=== PATIENT | female | born 1970 | race Caucasian/White ===

== ENCOUNTER → 2017-02-26 | Day surgery (SDC) | payer OTHER ==
[~2017-02-26] MED LIST: ALLERGY10 MG PO; ANUSOL SUPP1 SUPP; CALCIUM 500 +1 EAC2 PO; HYDROCHLOROTHIA25 MG PO; MOBIC15 MG PO; MULTI-DAY1 TAB PO; NEXIUM PO; PROBIOTIC1 EACH PO; SERTRALINE HCL100 MG PO; VIT B 6 PO; VIT E PO; ZESTRIL10 M2 PO; ZOLOFT50 MG PO
--- NOTE | ~2017-02-26 | OR ---
Unit #: [id number] #: [id number] Patient: DAVID CASTILLO [id number] [address] [place], [place] [address] [id number] MR#: [id number] NAME: DAVID CASTILLO. ROOM: Date of Procedure: 02/26/2017 Admission Date: 02/26/2017 Surgeon: Rao Chapman Jr., M.D. : 1970 Attending Physician: Rao Chapman Jr., M.D. Primary Care Physician: Tony Urbano M.D. OPERATIVE REPORT INDICATIONS FOR PROCEDURE The patient is a 46-year-old white female with very strong family history of colon polyps and cancer as well as nausea with mid epigastric abdominal pain. It was felt she could have possibly an ulcer, possibly reflux esophagitis and also that she should have a colonoscopy for screening purposes since her last colonoscopy was over 6 years ago. She is brought in this time for these procedures. She understands the procedures including the risks, including that of perforation and bleeding, and consents. PREOPERATIVE DIAGNOSES Possible occult ulcer disease, possible esophagitis, possible colonic pathology, rule out polyps. POSTOPERATIVE DIAGNOSES On upper endoscopy, the patient was noted to have an inlet patch in the upper esophagus with 2+ ulcerative distal esophagitis without stenosis and mild atrophic gastritis and on colonoscopy to the distal ileum, the patient was noted to have a normal colonoscopy except for some external hemorrhoids. ANESTHESIA MAC anesthesia. PROCEDURES PERFORMED Flexible fiberoptic esophagogastroduodenoscopy with antral biopsy for Helicobacter pylori and flexible colonoscopy to the distal ileum. DESCRIPTION OF PROCEDURE The patient was positioned in Diggs position with left side down. After being given MAC anesthesia, the Olympus XQ scope was passed through the proximal esophagus. In the proximal third of the esophagus, there was an inlet patch present without ulceration. The scope was then advanced down in the distal esophagus near the GE junction, where there were multiple linear and small ulcerations compatible with 2+ ulcerative distal esophagitis. No evidence of any stenosis. The scope was advanced through the GE junction into the cardia, and down to the fundic and antral region of the stomach and retroflexed back up to the area of the cardia. There was a small hiatal hernia present. The stomach distended well without evidence of rigidity. There was no evidence of any gastric ulcer disease. The scope was then straightened and advanced down in the antral area, where there were some small red streaks compatible with mild atrophic Unit #: [id number] #: [id number] Patient: DAVID CASTILLO gastritis. A biopsy was taken from the antrum for H pylori without significant bleeding. The scope was advanced through the pylorus into the duodenal bulb and down to the second portion of the duodenum. The entire duodenal portion examination was within normal limits. The ampulla appeared normal. The scope was then slowly removed. The patient repositioned for colonoscopy. Digital rectal examination was performed, which revealed no palpable mass or tenderness. No blood or stool in the rectal ampulla. There were several external hemorrhoids. The Olympus colonoscope was advanced through the anal canal up the rectum and retroflexed down to the area of the anorectal region. There was no evidence of any fissures. No significant internal hemorrhoids. The scope was then straightened and advanced up in the rectosigmoid, in the sigmoid and descending colon areas, around the splenic flexure and transverse colon, around hepatic flexure and the ascending colon, down in the area of the cecum. The light from the tip of the scope could be seen transilluminating through right lower quadrant abdominal wall area. The scope was advanced up the distal ileum approximately 10 to 12 inches. There was no evidence of any ileitis or inflammatory bowel disease. The scope was slowly removed. There were no tumors, polyps, cancer, or AVMs. No evidence of any colitis, diverticulosis, or diverticulitis. The caliber of the colon appeared normal throughout. The scope was removed. The patient tolerated the procedure well and discharged in satisfactory condition. Dictated by... Rao Chapman Jr., M.D. JMB/cesar TD: 02/26/2017 20:42 JOB #: [id number] CC: Tony Urbano M.D. OPERATIVE REPORT Page 1 of 1 X Rao Chapman MD X PROCEDURE OPERATIVE NOTE
== END | disposition home or self-care (01) ==
LOC: COPS 05:42
DX: Z12.11 Encounter for screening for malignant neoplasm of colon (principal); K29.40 Chronic atrophic gastritis without bleeding; K64.4 Residual hemorrhoidal skin tags; K22.10 Ulcer of esophagus without bleeding; K44.9 Diaphragmatic hernia without obstruction or gangrene; I10 Essential (primary) hypertension; E78.5 Hyperlipidemia, unspecified; M15.9 Polyosteoarthritis, unspecified; K90.49 Malabsorption due to intolerance, not elsewhere classified; Z80.0 Family history of malignant neoplasm of digestive organs; Z88.6 Allergy status to analgesic agent; Z79.1 Long term (current) use of non-steroidal anti-inflammatories (NSAID); Z79.899 Other long term (current) drug therapy; Z90.710 Acquired absence of both cervix and uterus; Z98.51 Tubal ligation status; Z98.890 Other specified postprocedural states
CPT/HCPCS: 87077; J2250